=== PATIENT | female | born 2000 | race Caucasian/White ===

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

== ENCOUNTER 2019-03-31 22:01 | Emergency (ER) | payer MEDICAID ==
[~2019-03-31] VITALS: Ht 154.9 cm; Wt 54.0 kg
--- NOTE | 2019-03-31 22:19 | NUR ---
POISON CONTROL: ADVISED TO MONITOR PATIENT 4-6 HOURS THEN PROCEDE WITH [facility] EVAL. DRAW BASIC LABS WITH UTOX. MONITOR PATIENT FOR RESPIRATORY DEPRESSION. PER THE MICHAELN PRESENTAION, POISON CONTROL STATED IT DOESN'T SOUND LIKE THE PATIENT TOOK THE AMOUNT OF XANAX SHE STATED SHE DID.
[2019-03-31 22:41] LABS: BASOPHILS % (AUTO) 1.2 % (0-1); EOSINOPHILS # (AUTO) 0.1 X10'3 (0-0.9); EOSINOPHILS % (AUTO) 1.6 % (0-6); HEMATOCRIT 42.3 % (35.0-45.0); HEMOGLOBIN 14.1 g/dl (12.0-16.0); LYMPHOCYTES # (AUTO) 1.7 X10'3 (1.1-4.8); LYMPHOCYTES % (AUTO) 41.6 % (21-51); MEAN CORPUSCULAR HEMOGLOBIN 30.7 PG (27.0-31.0); MEAN CORPUSCULAR HGB CONC 33.4 g/dL (33.0-36.5); MEAN CORPUSCULAR VOLUME 92.2 FL (78-98); MONOCYTES # (AUTO) 0.4 X10'3 (0-0.9); NEUTROPHILS # (AUTO) 1.9 X10'3 (1.8-7.7); NEUTROPHILS % (AUTO) 45.6 % (42-75); PLATELET COUNT 190 X10'3 (140-440); RED BLOOD COUNT 4.59 X10'6 (4.20-5.60); RED CELL DISTRIBUTION WIDTH 13.3 % (11.5-14.5); WHITE BLOOD COUNT 4.1 X10'3 (4.5-11.0)
[2019-03-31 22:50] LABS: ALANINE AMINOTRANSFERASE 22 U/L (12-78); ALBUMIN 4.1 G/DL (3.4-5.0); ALBUMIN/GLOBULIN RATIO 1.1 (1.1-1.5); ALKALINE PHOSPHATASE 60 IU/L (20-180); ANION GAP 10 (8-16); ASPARTATE AMINO TRANSFERASE 17 U/L (10-37); BILIRUBIN,TOTAL 0.9 MG/DL (0.1-1.0); BLOOD UREA NITROGEN 8 MG/DL (7-18); BUN/CREATININE RATIO 9.9 (6.6-38.0); CHLORIDE 107 MMOL/L (99-107); CREATININE 0.81 MG/DL (0.40-0.90); GLUCOSE 80 MG/DL (70-104); POTASSIUM 3.8 MMOL/L (3.5-5.1); SODIUM 143 MMOL/L (135-145); TOTAL CARBON DIOXIDE 26.2 MMOL/L (24-32); TOTAL PROTEIN 7.9 G/DL (6.4-8.2); eGFR > 90 ML/MIN
--- NOTE | 2019-03-31 22:56 | NUR ---
TOOK PT TO BATHROOM TO VOID IN WHEEL CHAIR. PT WAS ABLE TO INDEPENDENTLY HELP HERSELF TO THE [facility] FOR VOID. NOTICED PT WAS ON HER MENSES. BROUGHT PADS AND GISEL PANTS TO PATIENT . PT STATED SHE HADNT CHNAGE HER PAD ALL DAY. UPON RETURNING TO THE ROOM PT MOTHER WAS AT BEDSIDE AND OFERED TO ASSIST WITH CHANGING INTO GOWN AND PAD . LA AWARE OF URINE NOT BEING SENT , WILL BOLUS PT AND REATTEMPT.
--- NOTE | 2019-03-31 22:57 | NUR ---
RN taking Pt to BR in WC, as she is unsteady on her feet. Pt unable to provide urine smple and is currently having heavy mensus. Taken back to room and updated on current hold and that she will need evaluation by [facility] in am and then will have better idea of plan of care. Pt's mother at bedside and is helpful and supportive. Mother now assisting Pt to clean up dennise area and dress in green scrubs. Pt crying at stating "I cant believe i did this...I was going to move to [place] with my boyfriend...now it's not going to happen...I don't want to stay here...I want to go home...I dont want to have to stay for 3 weeks". Mother reports history of Mental health hold in past and Pt is familiar with a "72 hr hold". MD aware of delay in urine collection.
[2019-03-31] MEDS ORDERED: normal saline 1000ML IV soln IVB ONE (23:10)
--- NOTE | 2019-03-31 23:29 | NUR ---
ARMANI Merino updated that Pt is still unable to provide urine sample and has refused to put on the green scrubs. Pt's mother is at bedside but reports she will need to leave in awhile. I updated Pt that when her mother leaves she will need to put on the scrubs and I will need to collect and inventory all of her belongings per our policy. Pt stated "you will not take my cell phone". I reiterated our strict policy and mother also agreed. I told her that if she is not cooperative we will have security assist us. She stated "I will not given you my cell phone...I don't appreciate your bitchy little tone". Mother was appoligetic for her behavior. I turned off the room lights and shut the door. Mother remains in room.
--- NOTE | 2019-03-31 23:50 | NUR ---
hatch supervisor, Marci, updated of above note.
--- NOTE | 2019-04-01 00:31 | NUR ---
PEPE Barrios, in room and talking with Pt and Mother. Pt calm with her and interacting appropriately and is cooperative. Pt put on her green scrubs and made a plan with her mother to take her cell phone home and she will bring in back in the morning. Pt reports she still cannot urinate and that she is thirsty. Pt given warm blanket and pitcher if ice water. BSC now in room and pt encouraged to try to void as soon as she feels able.
--- NOTE | 2019-04-01 00:50 | NUR ---
ENCOURAGED PT TO VOID AND PLACE GREEN pjS ON. PT WAS ABLE TO CHANGE INTO GREENS WITH MOM AT BEDSIDE. PT PLACED ON PHOTOGRAPHIC PRINTER. BEDSIDE COMMODE TAKEN TO THE BHASKAR TO PROMOTE VOID. GAVE PT 240 ML OF WATER , PLACED HAND IN WARM WATER TO PROMOTE VOID . LA AWARE THAT PT IS HAVING DIFFICULTY VOIDING.
[2019-04-01] MEDS ORDERED: nicotine 14mg patch - 24hr TD ONE (01:55)
--- NOTE | 2019-04-01 01:55 | NUR ---
pt requests to smoke a cigarette, updated on our policy, she is agreeable to trying a nicotine patch. Pt still unable to provide urine sample
--- NOTE | 2019-04-01 02:14 | NUR ---
verbal received for nicotine patch. Mother , Heather (cell [phone], leaving now and has all of pt's personal belongings.
[2019-04-01] MEDS ORDERED: ALPR-624 PO (02:17)
[2019-04-01] MEDS ORDERED: normal saline 1000ml 1,000 ML IV ONE (02:30)
[2019-04-01] MEDS ORDERED: ALPRAZolam 0.5mg tablet PO PRN (02:45)
--- NOTE | 2019-04-01 02:55 | NUR ---
I BROUGHT PT ANOTHER CUP OF ICE WATER AND STARTED A 2ND LITER OF NS AND PLACED THE NICOTINE PATCH. PT APOLIGIZED FOR "NOT BEING ABLE TO PEE FOR YOU GUYS". SHE TOLD ME SOME STORIES ABOUT "HORRIBLE THINGS" SHE SAW WHEN SHE WAS AT THE INPATIENT FACILITY AT AGE 15 AND STATES IT WAS "LIKE BEING IN PENITENTIARY" AND THAT IS WHY SHE REPORTS SHE IS SO SCARED ABOUT GOING TO INPT PSYCH. SHE THANKED ME FOR LISTINING AND APPOLIGIZED FOR LASHING OUT AT ME EARLIER.
[2019-04-01 04:15] LABS: CLARITY,URINE CLEAR (Clear); COLOR,URINE YELLOW (Yellow); GLUCOSE, URINE NEGATIVE (Neg); KETONES,URINE 15 mg/dl (Neg); LEUKOCYTE ESTERASE ,URINE NEGATIVE (Neg); NITRITES, URINE NEGATIVE (Neg); OCCULT BLOOD,URINE LARGE (Neg); PROTEIN,URINE NEGATIVE (Neg); URINE HCG NEGATIVE (NEG); UROBILINOGEN,URINE 0.2 E.U/dL (0.2-1.0)
[2019-04-01] MEDS ORDERED: diphenhydrAMINE 50 mg/ml inj IV ONE (04:20)
[2019-04-01 04:28] LABS: UA COLLECTION TYPE CLN CATCH MIDSTREAM
[2019-04-01 04:29] LABS: BACTERIA,URINE FEW /HPF (Neg); SQUAMOUS EPITHELIAL CELL,UR FEW /LPF (FEW); WBC,URINE 0-4 /HPF (0-4)
[2019-04-01 04:30] LABS: URINE AMPHETAMINE SCREEN NEGATIVE (Neg); URINE BARBITUATE SCREEN NEGATIVE (Neg); URINE BENZODIAZEPINES SCREEN POSITIVE (Neg); URINE CANNABINOID SCREEN POSITIVE (Neg); URINE COCAINE SCREEN NEGATIVE (Neg); URINE METHADONE SCREEN NEGATIVE (Neg); URINE OPIATE SCREEN NEGATIVE (Neg); URINE PHENCYCLIDINE SCREEN NEGATIVE (Neg)
--- NOTE | 2019-04-01 04:57 | NUR ---
Pt given benedryl 50 mg iv for sleep aid and given snacks and juice. HR 50's otherwise vss.
[2019-04-01 06:18] VITALS: BP_DIAS 62
--- NOTE | 2019-04-01 06:30 | NUR ---
PT SLEEPING ON HER RIGHT SIDE, NO S/S OF RESPIRATORY DISTRESS
--- NOTE | 2019-04-01 06:35 | NUR ---
PACKET FAXED TO [facility]
--- NOTE | 2019-04-01 07:05 | NUR ---
SPOKE WITH POISON CONTROL, ADDED ASA, TYLENOL AND BLOOD ETOH TO THE PREVIOUS BLOOD DRAW PER POISON CONTROL SUGGESTION ALSO ADDED A REGULAR DIET FOR PT.
[2019-04-01] MEDS ORDERED: CITALOpram 10mg tablet PO SCH (08:00)
[2019-04-01 08:31] VITALS: BP_SYST 109
--- NOTE | 2019-04-01 08:47 | NUR ---
PT'S MOTHER AT THE BEDSIDE
[2019-04-01 09:15] LABS: ETHANOL < 0.010 GM/DL (0.0-0.010)
--- NOTE | 2019-04-01 09:15 | NUR ---
scmh at the bedside conducting tooal
[2019-04-01 09:16] LABS: ACETAMINOPHEN < 2.0 UG/ML (10-30)
--- NOTE | 2019-04-01 11:38 | NUR ---
followed up with poison control, advised them of the lab values and the discharge instructions for the pt.
== END 2019-04-01 10:17 | disposition home or self-care (01) ==
LOC: ER 22:01
DX: T42.4X1A Poisoning by benzodiazepines, accidental (unintentional), initial encounter (principal); F32.9 Major depressive disorder, single episode, unspecified; F41.9 Anxiety disorder, unspecified; F12.90 Cannabis use, unspecified, uncomplicated; Z88.1 Allergy status to other antibiotic agents; Z88.6 Allergy status to analgesic agent; Z88.8 Allergy status to other drugs, medicaments and biological substances; Z79.899 Other long term (current) drug therapy; Y92.89 Other specified places as the place of occurrence of the external cause
CPT/HCPCS: 36415; 80053; 80305; 80320; 80329; 81001; 81025; 85025; 93005; 96374; 99284; J1200; J7030

== ENCOUNTER 2021-03-06 15:52 | Emergency (ER) | payer MEDICAID ==
[~2021-03-06] VITALS: Ht 170.2 cm; Wt 49.8 kg
[~2021-03-06 15:52] MED LIST changes: +ALPR-624 PO; -LEVO1TBD PO
[2021-03-06 16:13] VITALS: BP 110/57
[2021-03-06] MEDS ORDERED: CITA-311 PO (16:49)
== END 2021-03-06 17:08 | disposition home or self-care (01) ==
LOC: ER 15:52
DX: Z02.89 Encounter for other administrative examinations (principal); F41.9 Anxiety disorder, unspecified; F32.9 Major depressive disorder, single episode, unspecified; F12.90 Cannabis use, unspecified, uncomplicated; Z76.0 Encounter for issue of repeat prescription; Z72.89 Other problems related to lifestyle; Z88.1 Allergy status to other antibiotic agents; Z88.6 Allergy status to analgesic agent; Z88.8 Allergy status to other drugs, medicaments and biological substances; Z79.899 Other long term (current) drug therapy
CPT/HCPCS: 99281; 99283

== ENCOUNTER 2021-04-22 16:44 | Emergency (ER) | payer MEDICAID ==
[~2021-04-22] VITALS: Ht 170.2 cm; Wt 52.3 kg
[~2021-04-22 16:44] MED LIST changes: +CITA-311 PO
[2021-04-22 16:53] VITALS: BP 119/74
[2021-04-22 17:26] LABS: BASOPHILS % (AUTO) 0.4 % (0-1); EOSINOPHILS # (AUTO) 0.2 X10'3 (0-0.9); EOSINOPHILS % (AUTO) 2.7 % (0-6); HEMATOCRIT 40.9 % (35.0-45.0); HEMOGLOBIN 13.8 g/dl (12.0-16.0); LYMPHOCYTES # (AUTO) 2.7 X10'3 (1.1-4.8); LYMPHOCYTES % (AUTO) 37.9 % (21-51); MEAN CORPUSCULAR HEMOGLOBIN 32.3 PG (27.0-31.0); MEAN CORPUSCULAR HGB CONC 33.7 g/dL (33.0-36.5); MEAN CORPUSCULAR VOLUME 95.8 FL (78-98); MONOCYTES # (AUTO) 0.5 X10'3 (0-0.9); NEUTROPHILS # (AUTO) 3.8 X10'3 (1.8-7.7); PLATELET COUNT 199 X10'3 (140-440); RED BLOOD COUNT 4.27 X10'6 (4.20-5.60); RED CELL DISTRIBUTION WIDTH 12.9 % (11.5-14.5); WHITE BLOOD COUNT 7.2 X10'3 (4.5-11.0)
[2021-04-22 17:36] LABS: URINE HCG NEGATIVE (NEG)
[2021-04-22 17:39] LABS: CLARITY,URINE SLIGHTLY CLOUDY (Clear); COLOR,URINE STRAW (Yellow); GLUCOSE, URINE NEGATIVE (Neg); KETONES,URINE NEGATIVE (Neg); LEUKOCYTE ESTERASE ,URINE NEGATIVE (Neg); NITRITES, URINE NEGATIVE (Neg); OCCULT BLOOD,URINE MODERATE (Neg); PROTEIN,URINE NEGATIVE (Neg); UROBILINOGEN,URINE 0.2 E.U/dL (0.2-1.0)
[2021-04-22 17:41] LABS: ALANINE AMINOTRANSFERASE 22 U/L (12-78); ALBUMIN 4.1 G/DL (3.4-5.0); ALBUMIN/GLOBULIN RATIO 1.1 (1.1-1.5); ALKALINE PHOSPHATASE 70 IU/L (46-116); ANION GAP 13 (8-16); ASPARTATE AMINO TRANSFERASE 20 U/L (10-37); BILIRUBIN,TOTAL 0.5 MG/DL (0.1-1.0); BLOOD UREA NITROGEN 8 MG/DL (7-18); BUN/CREATININE RATIO 8.9 (6.6-38.0); CALCIUM 8.2 MG/DL (8.5-10.1); CHLORIDE 106 MMOL/L (99-107); GLUCOSE 129 MG/DL (70-104); LIPASE 54 U/L (73-393); POTASSIUM 3.5 MMOL/L (3.5-5.1); SODIUM 143 MMOL/L (135-145); TOTAL CARBON DIOXIDE 24.3 MMOL/L (24-32); eGFR 79 ML/MIN
[2021-04-22 17:47] LABS: UA COLLECTION TYPE CLN CATCH MIDSTREAM
[2021-04-22 17:54] LABS: MUCUS STRANDS FEW /LPF (Neg); SQUAMOUS EPITHELIAL CELL,UR MODERATE /LPF (FEW); TRANSITIONAL EPI CELLS,URINE FEW /HPF
[2021-04-22 17:55] LABS: BACTERIA,URINE FEW /HPF (Neg); RBC,URINE 0-2 /HPF (0-2); WBC,URINE 0-4 /HPF (0-4)
--- NOTE | 2021-04-22 19:43 | NUR ---
Pt called to room. Pt not in lobby, or outside. Provider notified
== END 2021-04-22 19:45 | disposition left against medical advice (07) ==
LOC: ER 16:45
DX: N94.6 Dysmenorrhea, unspecified (principal); F41.9 Anxiety disorder, unspecified; F32.9 Major depressive disorder, single episode, unspecified; Z88.0 Allergy status to penicillin; Z88.6 Allergy status to analgesic agent; Z79.899 Other long term (current) drug therapy
CPT/HCPCS: 36415; 80053; 81001; 81025; 83690; 85025; 99283

== ENCOUNTER 2024-01-26 17:19 | Emergency (ER) | payer MEDICAID ==
[~2024-01-26] VITALS: Ht 172.7 cm; Wt 74.4 kg
[~2024-01-26 17:19] MED LIST changes: -CITA10TA9 PO; +CITA10TA93 PO
[2024-01-26 17:25] VITALS: BP 116/71; PULSE 76; RESP 18; TEMP 97.8; O2SAT 98
== END 2024-01-26 19:51 | disposition home or self-care (01) ==
LOC: ER 17:19
DX: K42.9 Umbilical hernia without obstruction or gangrene (principal); F41.9 Anxiety disorder, unspecified; F32.A Depression, unspecified; F12.90 Cannabis use, unspecified, uncomplicated; Z72.89 Other problems related to lifestyle; Z88.8 Allergy status to other drugs, medicaments and biological substances; Z79.899 Other long term (current) drug therapy
CPT/HCPCS: 71045; 99284